=== PATIENT | female | born 1940 | race Caucasian/White ===

== ENCOUNTER → 2017-09-29 | Outpatient (CLI) | payer OTHER ==
[~2017-09-29] MED LIST: ACET325 PO; ASPI300S; ASPI81CH; CALCAVITD; Enalapril Maleat5 MG; FISH1000; IBUP400 PO; METAMUCIL660 GM PO; PRAV20; Vitamin B Comple1 EA
== END ==
LOC: LAB SHORT 09:10 → PLD 09:10
DX: D48.5 Neoplasm of uncertain behavior of skin (principal)
CPT/HCPCS: 88305